=== PATIENT | male | born 1970 | race Caucasian/White ===

== ENCOUNTER 2018-04-24 07:38 | Day surgery (SDC) | payer OTHER ==
[2018-04-22 13:18] VITALS: BMI 34.0
[~2018-04-24 07:38] MED LIST: LACTATED RINGERS 1,000 ML IV SCH; LIDOCAINE 1% 20 ML VIAL (10MG/ML) FOR IV START INTRADERMA PRN; MIDAZOLAM 2 MG/2 ML VIAL IV PRN
[2018-04-24 07:51] VITALS: RESP 16
[2018-04-24 07:58] VITALS: TEMP 98.5
[2018-04-24] MEDS ORDERED: LIDOCAINE 1% INJ 10MG/ML (20 ML MDV) ONE (08:44)
[2018-04-24] MEDS ORDERED: PROPOFOL 10 MG/ML 20 ML VIAL IV ONE (08:44)
--- NOTE | 2018-04-24 08:49 | P.GSHP ---
History of Present Illness H&P Date: 04/24/18 Chief Complaint: GI bleed This a 47-year-old male referred from Dr. Deonna dawkins. Patient has had issues with rectal bleeding. He presents today for colonoscopy. Past Medical History Past Medical History: Asthma, GERD/Reflux History of Any Multi-Drug Resistant Organisms: None Reported Additional Past Surgical History / Comment(s): R knee arthroscopy Past Anesthesia/Blood Transfusion Reactions: No Reported Reaction Smoking Status: Never smoker Medications and Allergies Home Medications Medication Instructions Recorded Confirmed Type Albuterol Inhaler [Ventolin Hfa 1 - 2 puff INHALATION RT-Q6H PRN 04/22/18 History Inhaler] Omeprazole [PriLOSEC] 10 mg PO DAILY 04/22/18 04/24/18 History Allergies Allergy/AdvReac Type Severity Reaction Status Date / Time No Known Allergies Allergy Verified 04/24/18 07:58 Surgical - Exam Vital Signs Resp 16 04/24/18 07:50 - General well developed, no distress - Eyes PERRL - ENT normal pinna - Neck no masses - Respiratory normal expansion - Cardiovascular Rhythm: regular - Abdomen Abdomen: soft, non tender Assessment and Plan Assessment: GI bleed. We'll perform colonoscopy.
--- NOTE | 2018-04-24 09:10 | P.OP ---
Date of Procedure: 04/24/18 Preoperative Diagnosis: GI bleed Postoperative Diagnosis: Normal colon Procedure(s) Performed: Colonoscopy Anesthesia: MAC Surgeon: Ellis Bess Pathology: none sent Condition: stable Disposition: PACU Description of Procedure: PROCEDURE: The patient was placed on the endoscopy table in the lateral position. Digital rectal examination was performed which revealed no abnormalities. The prostate was symmetrical without nodules. Flexible colonoscope was then placed in the patient's anus and passed throughout the entire colon. The ileocecal valve was visualized. The cecum, ascending, transverse, descending and sigmoid colon were normal. The rectum was normal as well. There were no masses, polyps or diverticula noted in the entire colon. SUMMARY OF FINDINGS: Normal colonoscopy.
[2018-04-24 09:35] VITALS: BP 122/77; PULSE 60
--- NOTE | 2018-04-30 05:56 | CDI ---
Date: 04/30/18 CDS/[employer] Name: Sunita Matta Phone: If any questions, call Nikia Stock Collection Card Clerk at [phone] Patient Name: Kirk Dickens Admit Date: Discharge Date: ATTENTION: The [facility] Coding Staff appreciate your assistance in clarifying documentation. Please respond to the clarification below the line at the bottom and electronically sign. The [facility] Coding staff will review the response and follow-up if needed. Please note: Queries are made part of the Legal Health Record. If you have any questions, please contact the Collection Card Clerk. Dear Dr. Bess, Please provide clarification as to whether a biopsy was performed. No mention on procedure note that a biopsy was performed. The procedure note state normal colonoscopy. There is a pathology report attached to account. Please clarify. Thank you for your kind consideration. Operative note addendum made MTDD
== END 2018-04-24 09:50 | disposition home or self-care (01) ==
LOC: ORWHC2ENDO 07:38
PROVIDERS: ATTEND Surgery
DX: K62.5 Hemorrhage of anus and rectum (principal); K21.9 Gastro-esophageal reflux disease without esophagitis; J45.909 Unspecified asthma, uncomplicated; Z79.899 Other long term (current) drug therapy
CPT/HCPCS: 88305; 45380; J2001; J2704

== ENCOUNTER 2019-11-21 14:01 | Emergency (ER) | payer OTHER ==
[2019-11-21 14:05] VITALS: BP 137/95; PULSE 74; RESP 18; TEMP 98
--- NOTE | 2019-11-21 14:27 | ED ---
General Adult HPI - General Chief complaint: Extremity Injury, Upper Stated complaint: arm pain Time Seen by Provider: 11/21/19 14:09 Source: patient, RN notes reviewed Mode of arrival: ambulatory Limitations: no limitations - History of Present Illness Initial comments: 49-year-old male presents to the emergency department for a chief complaint of right arm pain. Patient states that he was carrying a dresser when he heard a pop in his right distal biceps area. Patient states that he immediately felt pain. Patient states he needs an MRI. He denies any other injuries. He denies numbness or tingling of the right hand. Patient has no other complaints at this time including shortness of breath, chest pain, abdominal pain, nausea or vomiting, headache, or visual changes. - Related Data Home Medications Medication Instructions Recorded Confirmed Albuterol Inhaler [Ventolin Hfa 1 - 2 puff INHALATION RT-Q6H PRN 04/22/18 04/24/18 Inhaler] Omeprazole [PriLOSEC] 10 mg PO DAILY 04/22/18 04/24/18 Allergies Allergy/AdvReac Type Severity Reaction Status Date / Time No Known Allergies Allergy Verified 11/21/19 14:06 Review of Systems ROS Statement: Those systems with pertinent positive or pertinent negative responses have been documented in the HPI. ROS Other: All systems not noted in ROS Statement are negative. Past Medical History Past Medical History: Asthma, GERD/Reflux History of Any Multi-Drug Resistant Organisms: None Reported Additional Past Surgical History / Comment(s): R knee arthroscopy Past Anesthesia/Blood Transfusion Reactions: No Reported Reaction Past Psychological History: No Psychological Hx Reported Smoking Status: Never smoker Past Alcohol Use History: None Reported Past Drug Use History: None Reported General Exam Limitations: no limitations General appearance: alert, in no apparent distress Head exam: Present: atraumatic, normocephalic, normal inspection Eye exam: Present: normal appearance, PERRL, EOMI. Absent: scleral icterus, conjunctival injection, periorbital swelling ENT exam: Present: normal exam, mucous membranes moist Neck exam: Present: normal inspection, full ROM. Absent: tenderness, meningismus, lymphadenopathy Respiratory exam: Present: normal lung sounds bilaterally. Absent: respiratory distress, wheezes, rales, rhonchi, stridor Cardiovascular Exam: Present: regular rate, normal rhythm, normal heart sounds. Absent: systolic murmur, diastolic murmur, rubs, gallop, clicks GI/Abdominal exam: Present: soft, normal bowel sounds. Absent: distended, tenderness, guarding, rebound, rigid Extremities exam: Present: full ROM (Full range of motion of the right arm), tenderness (Tenderness is noted to the distal anterior upper arm), normal capillary refill (Capillary refill less than 2 seconds, radial pulse 2+.), other (Incision intact in the right upper extremity. Contact Acid Plant Operator Helper strength is 5 out of 5. Positive hook test.). Absent: pedal edema, joint swelling, calf tenderness Neurological exam: Present: alert Course Vital Signs 11/21/19 14:02 Temperature 98 F Pulse Rate 74 Respiratory 18 Rate Blood Pressure 137/95 O2 Sat by Pulse 98 Oximetry Medical Decision Making - Medical Decision Making Physical exam is consistent with biceps tendon rupture. I recommended x-ray to rule out avulsion fracture however patient refuses at this time stating he just wants an MRI and does not want additional imaging. I discussed that we are unable to perform MRI through the ER however patient still does not want an x- ray. He is agreeable to following up with orthopedics tomorrow. I also recommended a sling and he stated he will not wear it so requested not to give it to him. He will take Motrin and Tylenol for pain. He will return for any worsening symptoms.I discussed this case with attending Dr. Elkins who agrees with this assessment and treatment plan. Disposition Clinical Impression: Arm pain Narrative: suspected biceps tendon rupture Disposition: HOME SELF-CARE Condition: Good Instructions (If sedation given, give patient instructions): Tendon Rupture (ED) Additional Instructions: Please use sling but continue to do range motion exercises of the shoulder to prevent frozen shoulder. Take motrin and tylenol for pain. Follow up with or thopedics by calling tomorrow. Return to the emergency department for any worsening symptoms. Is patient prescribed a controlled substance at d/c from ED?: No Referrals: Deonna Ohara DO [Primary Care Provider] - 1-2 days Joesph Ridley MD [STAFF PHYSICIAN] - 1-2 days Time of Disposition: 14:26
== END 2019-11-21 14:40 | disposition home or self-care (01) ==
LOC: EC 14:01
DX: M79.601 Pain in right arm (principal); J45.909 Unspecified asthma, uncomplicated; K21.9 Gastro-esophageal reflux disease without esophagitis; Z79.899 Other long term (current) drug therapy; X50.9XXA Other and unspecified overexertion or strenuous movements or postures, initial encounter; Y93.89 Activity, other specified; Y92.009 Unspecified place in unspecified non-institutional (private) residence as the place of occurrence of the external cause; Z53.29 Procedure and treatment not carried out because of patient's decision for other reasons
CPT/HCPCS: 99283

== ENCOUNTER → 2019-11-23 | Outpatient (CLI) | payer OTHER ==
--- NOTE | 2019-11-23 14:54 | MR ---
EXAMINATION TYPE: MR elbow RT wo con DATE OF EXAM: 11/23/2019 COMPARISON: None HISTORY: Pre Op Planning / Pain Standard multiplanar, multisequence MRI departmental protocol Multiplanar, multisequence images of the right elbow were acquired. Diffusion weighted imaging was pe rformed. FINDINGS: There is complete distal biceps tendon rupture. Retracted distal tendon is balled up at the level of the distal humeral metaphysis. There is surrounding fluid. Fluid is seen at the radial insertion with out evidence for radial avulsion or bone marrow signal abnormality. I do not see evidence of fracture . No masses are seen. No bony destructive process evident. IMPRESSION: There is complete distal biceps tendon rupture. Retracted distal tendon is balled up at the level of the distal humeral metaphysis. There is surrounding fluid.
== END | disposition home or self-care (01) ==
LOC: RADMRIMAIN 13:40
PROVIDERS: ATTEND Orthopaedic Surgery Sports Medicine
DX: S46.291A Other injury of muscle, fascia and tendon of other parts of biceps, right arm, initial encounter (principal); M66.831 Spontaneous rupture of other tendons, right forearm

== ENCOUNTER 2019-12-26 12:38 | Emergency (ER) | payer OTHER ==
[2019-12-26] MEDS ORDERED: ACETAMINOPHEN TAB 325 MG TAB PO STA (13:18)
--- NOTE | 2019-12-26 13:46 | XR ---
EXAMINATION TYPE: XR chest 1V DATE OF EXAM: 12/26/2019 HISTORY: cough. REFERENCE: NONE. FINDINGS: The lungs are clear. Pleural space are clear. The heart is not enlarged. IMPRESSION: NO ACTIVE INTRATHORACIC DISEASE.
[2019-12-26 13:59] LABS: Basophils % (A) 0 %; Eosinophils # (A) 0.1 k/uL (0-0.7); Eosinophils % (A) 2 %; HCT 47.5 % (39.0-53.0); HGB 15.6 gm/dL (13.0-17.5); Lymphocytes # (A) 1.4 k/uL (1.0-4.8); Lymphocytes % (A) 19 %; MCH 28.8 pg (25.0-35.0); MCHC 32.7 g/dL (31.0-37.0); Mean Platelet Volume 8.4; Monocytes # (A) 0.4 k/uL (0-1.0); Monocytes % (A) 5 %; Neutrophils # (A) 5.5 k/uL (1.3-7.7); Neutrophils % (A) 73 %; Platelet Count 241 k/uL (150-450); RDW 12.9 % (11.5-15.5); WBC 7.5 k/uL (3.8-10.6)
--- NOTE | 2019-12-26 14:03 | CT ---
EXAMINATION TYPE: CT brain wo con DATE OF EXAM: 12/26/2019 COMPARISON: None INDICATION: headaches DLP: 1099.4 mGycm, Automated exposure control for dose reduction was used. CONTRAST: None CT of the brain is performed utilizing 3 mm thick sections through the posterior fossa and 3 mm thick sections through the remaining calvarium. Study is performed within 24 hours of arrival to the hosp ital. No abnormal hyperdensity is present to suggest an acute intracranial hemorrhage. No mass lesion is evident. No acute infarcts are evident. Ventricles and sulci are appropriate for the patient age. Paranasal sinuses and mastoid air cells within the [id number] are clear. IMPRESSIONS: 1. No acute intracranial process.
[2019-12-26 14:09] LABS: ALT 31 U/L (4-49); AST 23 U/L (17-59); African American GFR (CKD) >90 (>60 ml/min/1.73 sqM); Albumin 4.7 g/dL (3.5-5.0); Alkaline Phosphatase 78 U/L (38-126); Anion Gap 8 mmol/L; Blood Urea Nitrogen 12 mg/dL (9-20); Calcium 9.6 mg/dL (8.4-10.2); Carbon Dioxide 27 mmol/L (22-30); Chloride 105 mmol/L (98-107); Glucose 94 mg/dL (74-99); Non-African American GFR(CKD) >90 (>60 ml/min/1.73 sqM); Potassium 4.3 mmol/L (3.5-5.1); Sodium 140 mmol/L (137-145); Total Bilirubin 0.4 mg/dL (0.2-1.3); Total Protein 7.4 g/dL (6.3-8.2)
--- NOTE | 2019-12-26 14:24 | ED ---
General Adult HPI - General Chief complaint: Upper Respiratory Infection Stated complaint: Covid Symptoms Time Seen by Provider: 12/26/19 12:49 Source: patient, RN notes reviewed, old records reviewed Mode of arrival: ambulatory Limitations: no limitations - History of Present Illness Initial comments: 49-year-old male presents for evaluation of cough, sore throat, nasal congestion and headache. Patient has had symptoms for approximately one month. He did have positive antibody screen to coronavirus approximately 10 days ago. He's had 30 days of a headache, sore throat and nasal congestion. He states yesterday's feeling quite well, worked in the yard for approximately 5 hours without any symptoms. Today he again developed sore throat and headache. Headache is gradual in onset. He states he typically does not get headaches but has had headaches over the past month associated with his upper respiratory symptoms. He denies dyspnea, states the majority of his cough and difficulty breathing is all resolved. He's been taking cough drops and he just completed a Z-Cristhian without significant improvement in his symptoms. He's been seen by his primary care physician. No vomiting or diarrhea. No fever. No chest pain or dyspnea. - Related Data Home Medications Medication Instructions Recorded Confirmed Albuterol Inhaler (Bulk) [Ventolin 1 - 2 puff INHALATION RT-Q6H PRN 04/22/18 04/24/18 Hfa Inhaler] Omeprazole [PriLOSEC] 10 mg PO DAILY 04/22/18 04/24/18 Allergies Allergy/AdvReac Type Severity Reaction Status Date / Time No Known Allergies Allergy Verified 11/21/19 14:06 Review of Systems ROS Statement: Those systems with pertinent positive or pertinent negative responses have been documented in the HPI. ROS Other: All systems not noted in ROS Statement are negative. Past Medical History Past Medical History: Asthma, GERD/Reflux History of Any Multi-Drug Resistant Organisms: None Reported Additional Past Surgical History / Comment(s): R knee arthroscopy Past Anesthesia/Blood Transfusion Reactions: No Reported Reaction Past Psychological History: Anxiety Smoking Status: Never smoker Past Alcohol Use History: Rare Past Drug Use History: None Reported General Exam Limitations: no limitations General appearance: alert, in no apparent distress Head exam: Present: atraumatic, normocephalic Eye exam: Present: normal appearance, PERRL, EOMI ENT exam: Present: normal exam, normal oropharynx Neck exam: Present: normal inspection. Absent: tenderness, meningismus Respiratory exam: Present: normal lung sounds bilaterally. Absent: respiratory distress, wheezes, rales Cardiovascular Exam: Present: regular rate, normal rhythm GI/Abdominal exam: Present: soft. Absent: distended, tenderness, guarding, rebound Extremities exam: Present: normal inspection, full ROM Neurological exam: Present: alert, oriented X3, CN II-XII intact. Absent: motor sensory deficit Psychiatric exam: Present: normal affect, normal mood Skin exam: Present: warm, dry, intact. Absent: cyanosis, diaphoretic Course Vital Signs 12/26/19 12:41 Temperature 97.8 F Pulse Rate 84 Respiratory 18 Rate Blood Pressure 154/112 O2 Sat by Pulse 97 Oximetry EKG Findings - EKG Comments: EKG Findings:: EKG: Sinus rhythm, rate of 72, KS interval 168, QRS duration 90, QTC 407, no ST segment elevation Medical Decision Making - Medical Decision Making 49-year-old male presenting with a daily headache, cough and cold symptoms, positive outpatient antibody test for virus. Majority of his symptoms have improved and are nearly resolved with the exception of intermittent headache. This is not a thunderclap headache. Head CT is performed negative for intracranial hemorrhage or mass effect. Chest x-ray is clear with no focal pneumonia. Patient has normal CBC, normal CMP. His symptoms may at least in part be related to ALLERGIES as he states the worse after being outside for approximate 5 hours yesterday. He will maintain oral hydration. He will take a Claritin. He will follow-up with his primary care physician who is aware of these symptoms - Lab Data Result diagrams: 12/26/19 13:38 12/26/19 13:38 Lab Results 12/26/19 12/26/19 Range/Units 13:38 13:38 WBC 7.5 (3.8-10.6) k/uL RBC 5.40 (4.30-5.90) m/uL Hgb 15.6 (13.0-17.5) gm/dL Hct 47.5 (39.0-53.0) % MCV 88.0 (80.0-100.0) fL MCH 28.8 (25.0-35.0) pg MCHC 32.7 (31.0-37.0) g/dL RDW 12.9 (11.5-15.5) % Plt Count 241 (150-450) k/uL Neutrophils % 73 % Lymphocytes % 19 % Monocytes % 5 % Eosinophils % 2 % Basophils % 0 % Neutrophils # 5.5 (1.3-7.7) k/uL Lymphocytes # 1.4 (1.0-4.8) k/uL Monocytes # 0.4 (0-1.0) k/uL Eosinophils # 0.1 (0-0.7) k/uL Basophils # 0.0 (0-0.2) k/uL Sodium 140 (137-145) mmol/L Potassium 4.3 (3.5-5.1) mmol/L Chloride 105 (98-107) mmol/L Carbon Dioxide 27 (22-30) mmol/L Anion Gap 8 mmol/L BUN 12 (9-20) mg/dL Creatinine 0.85 (0.66-1.25) mg/dL Est GFR (CKD-EPI)AfAm >90 (>60 ml/min/1.73 sqM) Est GFR (CKD-EPI)NonAf >90 (>60 ml/min/1.73 sqM) Glucose 94 (74-99) mg/dL Calcium 9.6 (8.4-10.2) mg/dL Total Bilirubin 0.4 (0.2-1.3) mg/dL AST 23 (17-59) U/L ALT 31 (4-49) U/L Alkaline Phosphatase 78 (38-126) U/L Total Protein 7.4 (6.3-8.2) g/dL Albumin 4.7 (3.5-5.0) g/dL Disposition Clinical Impression: Viral infection Disposition: HOME SELF-CARE Condition: Good Instructions (If sedation given, give patient instructions): Upper Respiratory Infection (ED) Is patient prescribed a controlled substance at d/c from ED?: No Referrals: Deonna Ohara DO [Primary Care Provider] - 1-2 days Time of Disposition: 14:24
[2019-12-26 14:46] VITALS: BP 151/83; PULSE 78; RESP 17; TEMP 98.2
== END 2019-12-26 14:46 | disposition home or self-care (01) ==
LOC: EC 12:38
DX: B34.9 Viral infection, unspecified (principal); R51 Headache; J45.909 Unspecified asthma, uncomplicated; K21.9 Gastro-esophageal reflux disease without esophagitis; Z79.51 Long term (current) use of inhaled steroids; Z79.899 Other long term (current) drug therapy
CPT/HCPCS: 36415; 70450; 71045; 80053; 85025; 93005; 99285

== ENCOUNTER 2020-01-08 16:59 | Emergency (ER) | payer OTHER ==
[2020-01-08 17:05] VITALS: RESP 18
--- NOTE | 2020-01-08 17:38 | ED ---
General Adult HPI - General Chief complaint: Recheck/Abnormal Lab/Rx Stated complaint: SOB/dizziness Time Seen by Provider: 01/08/20 17:06 Source: patient Mode of arrival: ambulatory Limitations: no limitations - History of Present Illness Initial comments: Patient is a 49-year-old male with history of asthma presenting to emergency Department with a chief complaint of cough, headache and upper respiratory symptoms. Patient states about 6 weeks ago he was diagnosed with Covid based on his symptoms. Patient states about 3 weeks ago he also tested positive for the antibiotic. Patient reports during this period, his symptoms of them are fully resolved. Patient reports sinus congestion and a headache that starts in the frontal region and wraps around to the neck bilaterally in a vice director career services pattern. Patient states the headache is gradual in onset and not the worst headache of his life. Patient reports the shortness of breath has gradually resolved as well as the cough although there still slightly present. Patient states a week ago his primary care prescribed and Singulair which helped his breathing. Patient states she was also given a prescription for amoxicillin for a possible sinus infection. Currently he is only taken 2 doses of it. Patient reports on an of diarrhea for the past 6 weeks. Patient also reports that about a week ago he's developed polyuria with pain at the tip of the glans penis. Denies a burning sensation during urination. Denies any rashes or lesions on the penis. Patient is not concerned for any STI. Denies any chest pain, abdominal pain, nausea, vomiting, sided weakness or paresthesias. - Related Data Home Medications Medication Instructions Recorded Confirmed Albuterol Inhaler (Mhu) [Ventolin 1 - 2 puff INHALATION RT-Q6H PRN 04/22/18 04/24/18 Hfa Inhaler] Omeprazole [PriLOSEC] 10 mg PO DAILY 04/22/18 04/24/18 Allergies Allergy/AdvReac Type Severity Reaction Status Date / Time No Known Allergies Allergy Verified 01/08/20 17:05 Review of Systems ROS Statement: Those systems with pertinent positive or pertinent negative responses have been documented in the HPI. ROS Other: All systems not noted in ROS Statement are negative. Past Medical History Past Medical History: Asthma, GERD/Reflux Additional Past Medical History / Comment(s): covid History of Any Multi-Drug Resistant Organisms: None Reported Additional Past Surgical History / Comment(s): R knee arthroscopy Past Anesthesia/Blood Transfusion Reactions: No Reported Reaction Past Psychological History: Anxiety Smoking Status: Never smoker Past Alcohol Use History: Rare Past Drug Use History: None Reported General Exam Limitations: no limitations General appearance: alert, in no apparent distress Head exam: Present: atraumatic, normocephalic, normal inspection Eye exam: Present: normal appearance, PERRL, EOMI Pupils: Present: normal accommodation ENT exam: Present: normal exam, normal oropharynx, mucous membranes moist, TM's normal bilaterally, normal external ear exam Neck exam: Present: normal inspection, tenderness (Bilateral neck tenderness), full ROM. Absent: meningismus, lymphadenopathy Respiratory exam: Present: normal lung sounds bilaterally. Absent: respiratory distress, wheezes, rales, rhonchi, stridor, chest wall tenderness, accessory muscle use Cardiovascular Exam: Present: regular rate, normal rhythm, normal heart sounds GI/Abdominal exam: Present: soft. Absent: distended exam: Present: normal inspection. Absent: testicular tenderness, urethral discharge, scrotal swelling, vertical testicular lie, circumcision, other (No lesions or rashes noted on the penis or testicles.) Extremities exam: Present: normal inspection, full ROM Back exam: Present: normal inspection, full ROM Neurological exam: Present: alert, oriented X3 Psychiatric exam: Present: normal affect, normal mood Skin exam: Present: warm, dry, intact, normal color Course Vital Signs 01/08/20 01/08/20 17:02 18:51 Temperature 98.3 F 98.2 F Pulse Rate 80 81 Respiratory 18 18 Rate Blood Pressure 151/101 148/94 O2 Sat by Pulse 97 100 Oximetry EKG Findings - EKG Comments: EKG Findings:: Sinus rhythm, no significant ST changes. Ventricular rate 66, NE 178, QRS 92, QTC 394. Medical Decision Making - Medical Decision Making Patient is a 49-year-old male with history of asthma presenting to emergency Department with a chief complaint of cough headache and upper respiratory symptoms. Shortness of breath and cough has been gradually improving over the last 6 weeks. He did test positive for: Antibodies 3 weeks ago. On physical examination his lungs are clear to auscultation. Chest x-ray is unremarkable. Vitals are stable. Patient appears to have a headache this starts in the forehead and wraps around intermuscular pattern to the neck. He does have tenderness in bilateral sides of the neck. I suspect patient has a tension headache. This is a gradual onset headache and not the worst headache of his life. Physical examination of the penis and testicles are unremarkable. UA is clean. Return parameters thoroughly discussed with patient is understanding and agreeable. Advised to follow-up with primary care. Case discussed with physician. - Lab Data Lab Results 01/08/20 01/08/20 Range/Units 17:15 18:35 POC Glucose (mg/dL) 97 (75-99) mg/dL POC Glu Bender Machine ID Capri Mendoza Urine Color Colorless Urine Appearance Clear (Clear) Urine pH 6.0 (5.0-8.0) Ur Specific [place] 1.002 (1.001-1.035) Urine Protein Negative (Negative) Urine Glucose (UA) Negative (Negative) Urine Ketones Negative (Negative) Urine Blood Negative (Negative) Urine Nitrite Negative (Negative) Urine Bilirubin Negative (Negative) Urine Urobilinogen <2.0 (<2.0) mg/dL Ur Leukocyte Esterase Negative (Negative) Disposition Clinical Impression: Viral respiratory infection, Tension headache Disposition: HOME SELF-CARE Condition: Stable Instructions (If sedation given, give patient instructions): Tension Headache (ED) Additional Instructions: Follow-up with primary care. Continue taking the prescribed medication. Return to emergency department if symptoms worsen. Is patient prescribed a controlled substance at d/c from ED?: No Referrals: Deonna Ohara DO [Primary Care Provider] - 1-2 days Time of Disposition: 18:45
--- NOTE | 2020-01-08 17:52 | XR ---
EXAMINATION TYPE: XR chest 2V DATE OF EXAM: 01/08/2020 COMPARISON: 12/26/19 HISTORY: Chest pain TECHNIQUE: Frontal and lateral views of the chest are obtained. FINDINGS: There is no focal air space opacity. No evidence for pneumothorax. No pleural effusion. The cardiac silhouette size is within normal limits. The osseous structures are grossly intact. IMPRESSION: 1. No acute cardiopulmonary process.
[2020-01-08 18:03] LABS: Appearance,Urine Clear (Clear); Bilirubin,Urine Negative (Negative); Blood,Urine Negative (Negative); Color,Urine Colorless; Glucose,Urine (UA) Negative (Negative); Ketones,Urine Negative (Negative); Leukocyte Esterase,Urine Negative (Negative); Nitrite,Urine Negative (Negative); Protein,Urine Negative (Negative); Specific Gravity,Urine 1.002 (1.001-1.035); Urobilinogen,Urine <2.0 mg/dL (<2.0)
[2020-01-08] MEDS ORDERED: LIDOCAINE 1%-EPI 1:100,000 20 ML VIAL SQ STA (18:27)
[2020-01-08 18:37] LABS: Glucose,Whole Blood 97 mg/dL (75-99)
[2020-01-08] MEDS ORDERED: IBUPROFEN 400 MG TAB PO STA (18:43)
[2020-01-08] MEDS ORDERED: ACETAMINOPHEN TAB 325 MG TAB PO STA (18:43)
[2020-01-08 18:52] VITALS: BP 148/94; PULSE 81; TEMP 98.2
== END 2020-01-08 18:51 | disposition home or self-care (01) ==
LOC: EC 16:59
DX: J98.8 Other specified respiratory disorders (principal); B34.9 Viral infection, unspecified; G44.209 Tension-type headache, unspecified, not intractable; J45.909 Unspecified asthma, uncomplicated; K21.9 Gastro-esophageal reflux disease without esophagitis; Z79.899 Other long term (current) drug therapy
CPT/HCPCS: 36415; 71046; 81003; 93005; 99284

== ENCOUNTER → 2020-05-23 | Outpatient (CLI) | payer OTHER ==
[2020-05-24 11:48] LABS: Cow's Milk IgE Class CLASS 0; Egg White IgE <0.10 kU/L (<0.10); Peanut IgE 0.52 kU/L (<0.10); Potato IgE Class CLASS 0/1; Soybean IgE 0.31 kU/L (<0.10)
== END | disposition home or self-care (01) ==
LOC: LABWHC1 08:56
PROVIDERS: ATTEND Otolaryngology
DX: J30.89 Other allergic rhinitis (principal)
CPT/HCPCS: 36415; 86003

== ENCOUNTER 2021-01-18 10:28 | Day surgery (SDC) | payer OTHER ==
[2021-01-16 10:15] VITALS: BMI 32.5
[~2021-01-18 10:28] MED LIST changes: +LIDOCAINE 1% (10MG/ML) FOR IV START INTRADERMA PRN; -LIDOCAINE 1% 20 ML VIAL (10MG/ML) FOR IV START INTRADERMA PRN; -MIDAZOLAM 2 MG/2 ML VIAL IV PRN
[2021-01-18 10:45] VITALS: TEMP 97.4
[2021-01-18] MEDS ORDERED: PROPOFOL 10 MG/ML 20 ML VIAL IV ONE (12:25)
--- NOTE | 2021-01-18 12:35 | P.GSHP ---
History of Present Illness H&P Date: 01/18/21 Chief Complaint: Dysphagia This a 42-year-old male who has had issues with dysphagia. Patient will stay for EGD. He's a known history of GERD. Past Medical History Past Medical History: Asthma, GERD/Reflux Additional Past Medical History / Comment(s): Hx Covid 10/2019 "still having breathing issues, throat burning, coughing up blood and have developed food allergies since having Covid". History of Any Multi-Drug Resistant Organisms: None Reported Past Surgical History: Orthopedic Surgery Additional Past Surgical History / Comment(s): Right knee arthroscopy. Past Anesthesia/Blood Transfusion Reactions: No Reported Reaction, Postoperative Nausea & Vomiting (PONV) Past Psychological History: No Psychological Hx Reported Smoking Status: Never smoker Past Alcohol Use History: Occasional Past Drug Use History: None Reported - Past Family History Mother Family Medical History: No Reported History Medications and Allergies Home Medications Medication Instructions Recorded Confirmed Type Albuterol Inhaler (Mhu) [Ventolin 1 - 2 puff INHALATION Q6H PRN 04/22/18 01/16/21 History Hfa Inhaler] Omeprazole [PriLOSEC] 20 mg PO DAILY 04/22/18 01/16/21 History Allergies Allergy/AdvReac Type Severity Reaction Status Date / Time corn Allergy Anaphylaxis Verified 01/18/21 10:45 potato Allergy Anaphylaxis Verified 01/18/21 10:45 shellfish derived [Shrimp] Allergy Nausea Verified 01/18/21 10:45 soy Allergy Anaphylaxis Verified 01/18/21 10:45 tomato Allergy Anaphylaxis Verified 01/18/21 10:45 wheat Allergy Anaphylaxis Verified 01/18/21 10:45 Surgical - Exam Vital Signs Temp Pulse Resp BP Pulse Ox 97.4 F L 67 14 119/81 97 01/18/21 10:42 01/18/21 10:42 01/18/21 10:42 01/18/21 10:42 01/18/21 10:42 - General well developed, well nourished, no distress - Eyes PERRL - ENT normal pinna - Neck no masses - Respiratory normal expansion - Cardiovascular Rhythm: regular - Abdomen Abdomen: soft, non tender Assessment and Plan Assessment: GERD Dysphagia We'll perform EGD
--- NOTE | 2021-01-18 12:42 | P.OP ---
Date of Procedure: 01/18/21 Preoperative Diagnosis: Dysphagia Postoperative Diagnosis: Antral gastritis Small sliding hiatal hernia Minimal esophagitis Procedure(s) Performed: EGD Anesthesia: MAC Surgeon: Ellis Bess Pathology: other (Antrum, esophagus) Condition: stable Disposition: PACU Description of Procedure: The patient's placed on the endoscopy table in the lateral position. He received IV sedation. The gastro-/oropharynx passed in the esophagus and stomach. Scope was then placed through the pylorus. The first second portion of the duodenum appeared normal. Scope was then brought back the antrum this. Mildly inflamed. The scope was then retroflexed and the remainder of the stomach appeared normal. There was a small sliding hiatal hernia. The GE junction was at 39 cm. The distal esophagus was minimal inflamed. A biopsies performed. The proximal esophagus appeared normal. The scope was withdrawn for patient.
[2021-01-18 12:50] VITALS: RESP 16
[2021-01-18 13:00] VITALS: BP 127/77; PULSE 73
== END 2021-01-18 13:21 | disposition home or self-care (01) ==
LOC: ORWHC2ENDO 10:28
PROVIDERS: ATTEND Surgery
DX: K29.70 Gastritis, unspecified, without bleeding (principal); K20.0 Eosinophilic esophagitis; K44.9 Diaphragmatic hernia without obstruction or gangrene; R13.10 Dysphagia, unspecified; J45.909 Unspecified asthma, uncomplicated; Z86.16 Personal history of COVID-19; Z79.899 Other long term (current) drug therapy; Z91.013 Allergy to seafood; Z91.018 Allergy to other foods
CPT/HCPCS: 88305; 43239; J2704

== ENCOUNTER → 2023-11-05 | Outpatient (CLI) | payer OTHER ==
--- NOTE | 2023-11-05 18:22 | CT ---
EXAMINATION TYPE: CT sinus wo con DATE OF EXAM: 11/05/2023 COMPARISON: none HISTORY: Chronic sinusitis with headache and sore throat. Pre-surgical. CT DLP: [address] of the paranasal sinuses was performed in the axial and coronal planes. Bone and soft tissue settings are submitted. The paranasal sinuses demonstrate normal aeration and development. The paranasal sinuses are free of mucosal thickening or air fluid level. The osteal meatal units are patent bilaterally. The nasal septum is midline. No bony destructive changes are seen within the field of view. IMPRESSION: Normal unenhanced CT of the paranasal sinuses.
== END | disposition home or self-care (01) ==
LOC: RADCTMAIN 17:47
PROVIDERS: ATTEND Family Medicine
DX: Z01.818 Encounter for other preprocedural examination (principal); J32.9 Chronic sinusitis, unspecified; R49.0 Dysphonia; R51.9 Headache, unspecified
CPT/HCPCS: 70486

== ENCOUNTER → 2023-11-14 | Outpatient (CLI) | payer OTHER ==
[2023-11-14 15:31] LABS: HCT 46.6 % (39.6-50.0); HGB 15.3 g/dL (13.0-17.0); MCH 28.9 pg (27.0-32.0); MCHC 32.8 g/dL (32.0-37.0); MCV 88.1 FL (80.0-97.0); Mean Platelet Volume 11.1 FL (9.5-12.2); NRBC Per 100 WBC 0 X 10*3/uL (0.00-0.01); Platelet Count 204 X 10*3/uL (140-440); RBC 5.29 X 10*6/uL (4.40-5.60); RDW 13.7 % (11.5-14.5); WBC 7.49 X 10*3/uL (4.50-10.00)
[2023-11-14 16:37] LABS: ALT 49 U/L (10-49); AST 34 U/L (14-35); Albumin 4.8 g/dL (3.8-4.9); Albumin/Globulin Ratio 2.18 Ratio (1.60-3.17); Alkaline Phosphatase 94 U/L (41-126); BUN/Creat Ratio 13.11 Ratio (12.00-20.00); Blood Urea Nitrogen 11.8 mg/dL (9.0-27.0); Calcium 9.7 mg/dL (8.7-10.3); Carbon Dioxide 26.1 mmol/L (21.6-31.8); Chloride 103 mmol/L (96-109); Globulin 2.2 g/dL (1.6-3.3); Glucose 95 mg/dL (70-110); Potassium 4.8 mmol/L (3.5-5.5); Sodium 140 mmol/L (135-145); Total Bilirubin <0.2 mg/dL (0.3-1.2)
[2023-11-17 14:57] LABS: Alt. alternata IgE Class CLASS 3; Alternaria alternata IgE 4.71 kU/L (<0.10); Asperg. fumagatus IgE 0.69 kU/L (<0.10); Asperg. fumagatus IgE Class CLASS 1; Candida albicans IgE Class CLASS 2; Clad herbarum IgE 0.68 kU/L (<0.10); Clad herbarum IgE Class CLASS 1; Mucor racemosus IgE 0.11 kU/L (<0.10); Mucor racemosus IgE Class CLASS 0/1; Penicillium chrysogenum IgE 0.29 kU/L (<0.10); Penicillium chrysogenum IgE Cl CLASS 0/1
[2023-11-19 18:30] LABS: Corn IgG 2.6 mcg/mL (<2.0); Cow's Milk IgG 25.9 mcg/mL (<2.0); Peanut IgG 2.1 mcg/mL (<2.0); Potato IgG <2.0 mcg/mL (<2.0); Soybean IgG <2.0 mcg/mL (<2.0); Tomato IgG 3.6 mcg/mL (<2.0)
== END | disposition home or self-care (01) ==
LOC: LABWHC1 10:54
PROVIDERS: ATTEND Family Medicine
DX: E66.9 Obesity, unspecified (principal); Z77.098 Contact with and (suspected) exposure to other hazardous, chiefly nonmedicinal, chemicals
CPT/HCPCS: 36415; 80053; 82306; 82785; 83036; 84439; 84443; 85027; 86001; 86003; 86140

== ENCOUNTER → 2024-07-28 | Outpatient (CLI) | payer OTHER ==
--- NOTE | 2024-07-29 08:11 | US ---
EXAMINATION TYPE: US venous doppler duplex LE RT DATE OF EXAM: 07/28/2024 9:42 AM COMPARISON: NONE CLINICAL INDICATION: Male, 54 years old with history of M79.661 PAIN IN RIGHT LOWER LEG; pain in rt c nishi on and off for 4 months, TECHNIQUE: The lower extremity deep venous system is examined utilizing real time linear array sonog loco with graded compression, color doppler sonography, and spectral doppler. SIDE PERFORMED: Right FINDINGS: VESSELS IMAGED: Common Femoral Vein Deep Femoral Vein Greater Saphenous Vein * Femoral Vein Popliteal Vein Small Saphenous Vein * Proximal Calf Veins (* superficial vessels) Right Leg: Negative for DVT, Color Doppler imaging shows patency of the vessels. Spectral waveforms are within normal limits. IMPRESSION: No ultrasound evidence for deep venous thrombosis. [facility], , 07/29/2024 8:09 AM
== END | disposition home or self-care (01) ==
LOC: RADUSWWP 09:02
PROVIDERS: ATTEND Internal Medicine Clinical Cardiac Electrophysiology
DX: M79.661 Pain in right lower leg (principal)

== ENCOUNTER → 2024-08-24 | Outpatient (CLI) | payer OTHER ==
--- NOTE | 2024-09-05 23:23 | MR ---
EXAMINATION TYPE: MR foot LT wo con DATE OF EXAM: 08/24/2024 COMPARISON: None available HISTORY: Left foot, plantar fascial fibromatosis. TECHNIQUE: Multiplanar, multisequence images of the left foot were acquired without contrast. FINDINGS: BONES/CARTILAGE/JOINT: Bone marrow signal is normal. Articular cartilage is normal. No joint effusion. LIGAMENTS: Spring ligament is normal. Lisfranc ligament normal. Normal plantar plates. TENDONS: Flexor tendons are normal. Extensor tendons are normal. SOFT TISSUES: No bursal distention. No intermetatarsal bursa or soft tissue mass. Sinus tarsi is normal. Focal full-thickness tear of the medial/central band of the plantar fascia. The plantar fascia origin is hyperintense and thickened, measures 8.5 mm. Neurovascular structures are normal. IMPRESSION: Plantar fasciitis and plantar fascial tear. [facility], Workstation: [employer], 09/05/2024 11:21 PM
== END | disposition home or self-care (01) ==
LOC: RADMRIMAIN 07:01
PROVIDERS: ATTEND Podiatrist
DX: M72.2 Plantar fascial fibromatosis (principal)

== ENCOUNTER → 2024-09-29 | Outpatient (CLI) | payer OTHER ==
--- NOTE | 2024-09-30 08:56 | CT ---
EXAMINATION TYPE: CT chest wo con CT DLP: 722.2 mGycm, Automated exposure control for dose reduction was used. DATE OF EXAM: 09/29/2024 4:40 PM COMPARISON: Chest radiograph 01/08/2020, 12/26/2019 CLINICAL INDICATION:Male, 54 years old with history of J45.51 SEVERE PERSISTENT ASTHMA WITH (ACUTE) E XACE; PHH, Pt states they have been having breathing issues since having Covid 5 years ago and those issues have gotten worse in the last year, also mentioned a spot on long was found in a previous exam he had. TECHNIQUE: Multiple axial images were obtained through the chest without IV contrast. Lack of IV or o ral contrast limits evaluation of solid and hollow organ viscera. . Coronal and sagittal reformats re viewed. FINDINGS: LUNGS/ PLEURA: No pleural effusion, pneumothorax, focal consolidation. Right midlung 2 mm pulmonary n odule (series 4, image 33). Right upper lobe 2.5 mm pulmonary nodule (series 4, image 25). AIRWAY: Patent and unremarkable.. HEART: Size within normal limits.No pericardial effusion. MEDIASTINUM: No gross evidence of adenopathy. VASCULATURE: No aortic aneurysm. MUSCULOSKELETAL: No acute osseous abnormalities. Multilevel Schmorl's nodes of the thoracic spine. SOFT TISSUES/LYMPH NODES: Unremarkable. LOWER NECK: No significant findings. UPPER ABDOMEN: No significant findings. IMPRESSION: 1. No acute thoracic process. 2. Couple of pulmonary micronodules measuring less than 3 mm. In a low risk patient no follow-up is r ecommended. In a high-risk patient consider optional CT chest in 12 months. [facility], , 09/30/2024 8:54 AM
== END | disposition home or self-care (01) ==
LOC: RADCTMAIN 15:16
PROVIDERS: ATTEND Internal Medicine Pulmonary Disease
DX: J45.51 Severe persistent asthma with (acute) exacerbation (principal); E66.9 Obesity, unspecified; K21.9 Gastro-esophageal reflux disease without esophagitis; R91.8 Other nonspecific abnormal finding of lung field
CPT/HCPCS: 71250

== ENCOUNTER → 2024-11-04 | Outpatient (CLI) | payer OTHER ==
--- NOTE | 2024-11-05 10:04 | CA ---
Transthoracic Echo Report Name: Kirk Dickens Age: 54 Gender: M : 1970 Exam Date: 11/04/2024 15:18 Exam Location: [facility] Ht (in): 75 Wt (lb): 304 Ordering Physician: Peter Bashir MD Attending/Referring Phys: Mckay MARK Tobacco Sample Puller Mayelin Bonds RDCS Procedure CPT: Indications: R06.00 Dyspnea Cardiac Hx: Technical Quality: Fair Contrast 1: Total Dose (mL): Contrast 2: Total Dose (mL): MEASUREMENTS (Male / Female) Normal Values 2D ECHO LV Diastolic Diameter PLAX 4.7 cm 4.2 - 5.9 / 3.9 - 5.3 cm LV Systolic Diameter PLAX 3.1 cm IVS Diastolic Thickness 1.3 cm 0.6 - 1.0 / 0.6 - 0.9 cm LVPW Diastolic Thickness 1.1 cm 0.6 - 1.0 / 0.6 - 0.9 cm LV Relative Wall Thickness 0.5 RV Internal Dim ED PLAX 2.4 cm LA Systolic Diameter LX 4.7 cm 3.0 - 4.0 / 2.7 - 3.8 cm LV Diastolic Volume MOD BP 137.6 cm??? 67 - 155 / 56 - 104 cm??? LV Systolic Volume MOD BP 69.2 cm??? - 58 / 19 - 49 cm??? LV Ejection Fraction MOD BP 49.7 % >= 55 % LV Cardiac Index MOD BP 2188.3 cm???/min???m??? LV Diastolic Volume MOD 4C 126.0 cm??? LV Systolic Volume MOD 4C 59.0 cm??? LV Ejection Fraction MOD 4C 53.2 % LV Cardiac Index MOD 4C 2145.3 cm???/min???m??? LV Diastolic Length 4C 8.6 cm LV Systolic Length 4C 7.6 cm LV Diastolic Volume MOD 2C 148.9 cm??? LV Systolic Volume MOD 2C 80.2 cm??? LV Ejection Fraction MOD 2C 46.1 % LV Cardiac Index MOD 2C 2198.8 cm???/min???m??? LV Diastolic Length 2C 8.5 cm LV Systolic Length 2C 7.4 cm LA Volume 49.4 cm??? 18 - 58 / 22 - 52 cm??? LA Volume Index 18.0 cm???/m??? 16 - 28 cm???/m??? M-MODE Aortic Root Diameter MM 3.1 cm LA Systolic Diameter MM 4.1 cm LA Ao Ratio MM 1.3 AV Cusp Separation MM 1.9 cm DOPPLER AI Peak Velocity 391.8 cm/s AI Peak Gradient 61.4 mmHg AI Pressure Half Time 1011.9 ms MV Area PHT 2.4 cm??? Mitral E Point Velocity 79.2 cm/s Mitral A Point Velocity 67.5 cm/s Mitral E to A Ratio 1.2 MV Deceleration Time 312.4 ms FINDINGS Left Ventricle Left ventricular ejection fraction is estimated at 45-50 %. Mildly increased septal wall thickness. Mildly increased left ventricular systolic volume. Mildly decreased left ventricular ejection fraction. Right Ventricle Normal right ventricular size and function. Right ventricular systolic pressure within normal limits. Right Atrium Mild right atrial dilatation. Left Atrium Moderately increased left atrial diameter. Mitral Valve Structurally normal mitral valve. Mild mitral regurgitation. No mitral stenosis. Aortic Valve Trileaflet aortic valve. Trace to mild aortic regurgitation. No aortic stenosis. Tricuspid Valve Structurally normal tricuspid valve. Mild tricuspid regurgitation. No tricuspid stenosis. Pulmonic Valve Structurally normal pulmonic valve. No pulmonic regurgitation. No pulmonic stenosis. Pericardium No pericardial or pleural effusion. Aorta Normal size aortic root and proximal ascending aorta. CONCLUSIONS Diagnosis shortness of breath Mild LV dysfunction ejection fraction 45 to 50% Normal RV size and function Biatrial enlargement No significant valvular abnormalities Normal IVC dimension Previewed by: Dr. Naresh Sanchez MD (Electronically Signed) Final Date: 05 November 2024 10:03
== END | disposition home or self-care (01) ==
LOC: RADECHMAIN 15:15
PROVIDERS: ATTEND Internal Medicine Pulmonary Disease
DX: J45.51 Severe persistent asthma with (acute) exacerbation (principal); E66.9 Obesity, unspecified; K21.9 Gastro-esophageal reflux disease without esophagitis; I51.7 Cardiomegaly; I51.89 Other ill-defined heart diseases
CPT/HCPCS: 93306